=== PATIENT | female | born 1975 | race Caucasian/White ===

== ENCOUNTER 2019-06-26 12:13 | Emergency (ER) | payer BC ==
[2019-06-26 13:51] VITALS: BP 104/63
--- NOTE | 2019-06-26 14:38 | UC ---
General HPI - HPI Summary HPI Summary: "I just wanna get checked for a UTI or something. ... stomach ache for a while ... something feels off ... " Intermittent nausea without vomiting and/or gastric discomfort for over one month. Woke up with bilateral lower back pain ( constant, ache, difficulty finding a comfortable position) three days ago. No known fever. No known injury. Has tried acetaminophen and ibuprofen without improvement. Malodorous urine one month ago. Denies current urinary symptoms. IUD placed one to two months ago; has not checked IUD strings for proper placement and rescheduled her IUD placement follow-up appointment. [ End ] pt denies V/D/dysuria. the back pain occurs with movement and improves with rest. no fever, numb/weak extremities or saddle anesthesia. pt notes just wants to ensure not a uti. does admits to occasional epigastric discomfort that radiates into her sides but no cp or sob. it occurs at random. not meal related. thinks may all be stress related. - History of Current Complaint Chief Complaint: UCBackPain Stated Complaint: URINARY COMPLAINT Time Seen by Provider: 06/26/19 14:29 Hx Obtained From: Patient Hx Last Menstrual Period: Mirena IUD (no period since placement) Pain Intensity: 5 Associated Signs & Symptoms: Negative: Fever - Allergy/Home Medications Allergies/Adverse Reactions: Allergies Allergy/AdvReac Type Severity Reaction Status Date / Time cephalexin Allergy Itching Verified 06/26/19 13:44 Home Medications: Home Medications Acetaminophen TAB* [Tylenol TAB*] 1,300 mg PO ONCE 06/26/19 [History Confirmed 06/26/19] DULoxetine CAP* [Cymbalta CAP*] 60 mg PO DAILY 06/26/19 [History Confirmed ] Ibuprofen TAB* [Advil TAB*] 800 mg PO Q6H PRN 06/26/19 [History Confirmed ] Levonorgestrel (Iud) [Mirena IUD] 20 mcg IU ONCE 06/26/19 [History Confirmed ] Levothyroxine TAB* [Synthroid TAB*] 175 mcg PO DAILY 06/26/19 [History Confirmed 06/26/19] PMH/Surg Hx/FS Hx/Imm Hx Endocrine History: Thyroid Disease - Surgical History Surgical History: None - Social History Alcohol Use: None Substance Use Type: None Smoking Status (MU): Former Smoker Length of Time of Smoking/Using Tobacco: 1 PPD x 10 Years When Did the Patient Quit Smoking/Using Tobacco: 2005 Review of Systems All Other Systems Reviewed And Are Negative: Yes Constitutional: Negative: Fever, Chills Respiratory: Negative: Shortness Of Breath, Cough Cardiovascular: Negative: Palpitations, Chest Pain Gastrointestinal: Positive: Abdominal Pain - denies pain-feels off or discomfort , Nausea. Negative: Vomiting, Diarrhea Genitourinary: Negative: Dysuria, Hematuria, Frequency, Urgency Musculoskeletal: Positive: Other: - low back aches. Negative: Decreased ROM Neurological: Negative: Weakness, Paresthesia, Numbness Physical Exam Triage Information Reviewed: Yes Appearance: Well-Appearing Vital Signs: Initial Vital Signs Temp 98.5 F 06/26/19 13:41 Pulse 64 06/26/19 13:41 Resp 18 06/26/19 13:41 BP 104/63 06/26/19 13:41 Pulse Ox 99 06/26/19 13:41 Vital Signs Reviewed: Yes Eyes: Positive: Conjunctiva Clear ENT: Positive: Pharynx normal, TMs normal. Negative: Nasal congestion, Nasal drainage Neck: Positive: Supple, Nontender, No Lymphadenopathy, Other: - c-spine non tender Respiratory: Positive: Lungs clear, Normal breath sounds, No respiratory distress Cardiovascular: Positive: RRR, No Murmur Abdomen Description: Positive: Nontender, No Organomegaly, Soft. Negative: CVA Tenderness (R), CVA Tenderness (L), Distended, Guarding, Pulsatile Mass Bowel Sounds: Positive: Present Musculoskeletal: Positive: Other: - Back: no deformity or tenderness. rom intact. steady gait. s/v/m intact x4 and no saddle anesthesia. Neurological: Positive: Alert Psychological: Positive: Age Appropriate Behavior Skin Exam: Normal Skin: Negative: Rashes Course/Dx - Course Course Of Treatment: given hx of gi upest with episodes of upper abdominal discomfort, Gb u/s offered but pt declined citing time limit. pt advised of need to f/u pcp this week and go to the Er for worsening to which she agrees. - Differential Dx - Multi-Symptom Differential Diagnoses: Other - non toxic. no acute abdomen. hx concerning for possible gastritis thus will trial a ppi. also episodic eigasteric discomfort may imply biliary issue. GB u/s offered but pt declined and will f/u pcp. back: no concern for fx, infection or cauda equina. u/a=unremarkable and hcg=negative. - Diagnoses Provider Diagnosis: Back pain, Upset stomach Discharge - Sign-Out/Discharge Documenting (check all that apply): Patient Departure All imaging exams completed and their final reports reviewed: No Studies - Discharge Plan Condition: Stable Disposition: HOME Prescriptions: Omeprazole CAP (NF) [Prilosec CAP* 20 MG] 20 mg PO DAILY 14 Days #14 cap. Patient Education Materials: Gastritis (ED), Acute Low Back Pain (ED) Referrals: Jam Horta DO [Primary Care Provider] - 3 Days - Billing Disposition and Condition Condition: STABLE Disposition: Home - Attestation Statements Provider Attestation: Per institutional requirements, I have reviewed the chart, however, I was not consulted specifically or made aware of this patient by the midlevel provider. I did not personally evaluate, interact with , or disposition this patient.
== END 2019-06-26 15:00 | disposition home or self-care (01) ==
LOC: UCCORT 12:13
DX: M54.9 Dorsalgia, unspecified (principal); K30 Functional dyspepsia; E07.9 Disorder of thyroid, unspecified; Z87.891 Personal history of nicotine dependence
CPT/HCPCS: 81003; 84702; 99212; G0463